=== PATIENT | male | born 1950 | race Caucasian/White ===

== ENCOUNTER → 2017-06-28 | Outpatient (REF) | payer MEDICARE, OTHER | LOC: M LAB REF 17:37 | PROVIDERS: ATTEND Surgery | DX: C44.41 Basal cell carcinoma of skin of scalp and neck (principal) ==

== ENCOUNTER → 2020-07-20 | Outpatient (CLI) | payer MEDICARE, OTHER ==
--- NOTE | 2020-07-29 09:17 | REP ---
PET CT HISTORY: Solitary pulmonary nodule. COMPARISON: Chest CT study 06/10/2020. TECHNIQUE: 55 minutes following the intravenous injection of a 9.03 mCi dose of F18 fluorodeoxyglucose (FDG), three-dimensional PET CT imaging is acquired from the skull base to the proximal thighs. PET CT FINDINGS: There are two joan calcifications in the soft tissues of the left neck at the inferior margin of the left parotid gland. There is no soft tissue mass visible. Maximum standard uptake value adjacent to these joan calcifications is borderline at 2.67. Head and neck soft tissues are otherwise unremarkable. The elliptical shaped opacity in the right lower lobe, which was seen on a recent chest CT from 06/10/2020 at [facility], is again seen on todays chest CT. Borderline FDG accumulation is seen within this lesion with maximum standard uptake value 2.49. This density measures 2.5 cm in greatest diameter on accompanying CT. It has linear fibrotic component extending cranially and caudally from the nodular component. No other hypermetabolic uptake is seen within the thorax. No hilar or mediastinal joan uptake is observed. In the abdomen and pelvis, there is a diverticular uptake focus in the sigmoid colon consistent with a single inflamed colonic diverticulum. No adjacent mass lesion is seen. Otherwise, no abnormal hypermetabolic uptake is seen in the abdomen or pelvis. IMPRESSION: The nodular 2.5 cm density in the right lower lobe shows borderline fluorodeoxyglucose (FDG) accumulation, maximum standard uptake value 2.49. Low- grade malignancy not c completely excluded. Follow-up recommended. There are two adjacent joan calcifications along the inferior border of the parotid gland on the left. Otherwise negative PET CT study. Left colonic diverticulosis changes are noted. MTDD
== END ==
LOC: M PLARAD 09:23
PROVIDERS: ATTEND Internal Medicine Pulmonary Disease
DX: R91.1 Solitary pulmonary nodule (principal)
CPT/HCPCS: 78815; A9552

== ENCOUNTER → 2021-02-04 | Outpatient (CLI) | payer MEDICARE, OTHER ==
--- NOTE | 2021-02-04 14:16 | REP ---
INDICATION: SOLITARY PULMONARY NODULE. COMPARISON: 06/10/2020. TECHNIQUE: CT chest performed without the use of intravenous contrast. Sagittal and coronal reconstruction images are performed. FINDINGS: Lungs: Fibrotic changes are again seen in both lungs, primarily in the lower lung zones and more so on the right than on the left. These findings are stable. There is no new infiltrate. Scattered tiny calcified granulomas are seen bilaterally. The elliptical-shaped opacity in the right lower lobe is unchanged in size and appearance. There is a perivascular nodule seen on image number 28 which measures 7 mm and appears to have slightly increased in size compared to the prior exam, previously measuring approximately 5 mm. There are no other new parenchymal findings. Mediastinum: No adenopathy, there are few subcentimeter calcified lymph nodes present. Alysa: There is no adenopathy, there are few subcentimeter calcified lymph nodes present. Axilla: No gross adenopathy. Pleura: No effusion. Heart: Not enlarged. Thoracic aorta: No aneurysm. There is mild ectasia of the ascending thoracic aorta measuring 4.3 cm in AP dimension. Upper abdominal structures: There is diffuse fatty infiltration of the liver. Visualized osseous structures: There are degenerative changes of the spine without compression deformity. IMPRESSION: Elliptical opacity in the right lower lobe is unchanged in size and appearance. There is a small perivascular nodule in the right upper lobe on image number 28 which has increased in size to 7 mm from 5 mm. No other new findings. Recommend continued follow-up. <Electronically signed by Francis Cabello > 02/04/21 [id number]
== END ==
LOC: M RAD 13:15
PROVIDERS: ATTEND Internal Medicine Pulmonary Disease
DX: R91.1 Solitary pulmonary nodule (principal)

== ENCOUNTER → 2021-08-17 | Outpatient (CLI) | payer MEDICARE, OTHER ==
--- NOTE | 2021-08-17 11:13 | REP ---
INDICATION: ABNORMAL FINDING OF LUNG FIELD COMPARISON: Multiple the latest 02/04/2021 also without contrast TECHNIQUE: Standard helical technique without contrast FINDINGS: The mediastinum and pulmonary jose luis are stable. No mass or adenopathy has developed. There is no significant change in appearance of the imaged upper abdomen or imaged osseous structures. Evaluation of the lung velásquez shows no change in the 2.4 x 1.5 cm sized nodule in the right lower lobe. The 7 mm size nodule seen in the right upper lobe is unchanged. There is an incidental calcified granuloma in the lingula. There is an incidental calcified granuloma in the left lower lobe. There is an incidental calcified granuloma in the right lower lobe and an incidental calcified granuloma in the right upper lobe. No new abnormal nodules, masses, or opacities have developed. IMPRESSION: Stable CT findings as described above. Lung rads category 2 as per the revised Fleischner society criteria. Follow-up sooner if clinically relevant. <Electronically signed by Ronnie Fernandes > 08/17/21 [id number]
== END ==
LOC: M RAD 10:16
PROVIDERS: ATTEND Internal Medicine Pulmonary Disease
DX: R91.8 Other nonspecific abnormal finding of lung field (principal)

== ENCOUNTER → 2022-08-28 | Outpatient (CLI) | payer MEDICARE, OTHER | LOC: M RAD 12:46 | PROVIDERS: ATTEND Internal Medicine Pulmonary Disease | DX: R91.8 Other nonspecific abnormal finding of lung field (principal) ==

== ENCOUNTER → 2024-09-05 | Outpatient (CLI) | payer MEDICARE, OTHER | LOC: M SOG 15:48 | PROVIDERS: ATTEND Physician Assistant | DX: M79.644 Pain in right finger(s) (principal); R93.89 Abnormal findings on diagnostic imaging of other specified body structures ==